=== PATIENT | female | born 1990 | race Caucasian/White ===

== ENCOUNTER 2019-04-14 02:05 | Emergency (ER) | payer MEDICAID ==
[~2019-04-14] VITALS: Ht 165.1 cm; Wt 84.0 kg
[2019-04-14 02:10] VITALS: BP 132/80
== END 2019-04-14 03:00 | disposition left against medical advice (07) ==
LOC: ER 02:05
DX: R10.30 Lower abdominal pain, unspecified (principal); Z53.21 Procedure and treatment not carried out due to patient leaving prior to being seen by health care provider